=== PATIENT | female | born 1945 | race Caucasian/White ===

== ENCOUNTER 2016-06-18 20:54 | Inpatient (IN) ==
--- NOTE | 2016-06-18 21:05 | Emergency Department Note ---
Disposition Clinical Impression: Congestive heart failure, Hypoxia, CAD (coronary artery disease), Diabetes, Acute and chronic respiratory failure, Frail elderly, Confusion, COPD (chronic obstructive pulmonary disease), Abnormal EKG Disposition: Admitted As Inpatient Condition: Fair Referrals: NO,PCP [Primary Care Provider] - Forms: ED Satisfaction Letter General Adult HPI - General Chief complaint: ED Shortness of Breath/Dyspnea Stated complaint: "krista" - History of Present Illness HPI Narrative: 70-year-old female brought in from home, there is concern for shortness of breath. The patient has a history of CAD COPD DM and CHF. She has been struggling to breathe over the last day or so, the patient usually wears oxygen at home. She did not really want come to the hospital but finally acquiesced, the patient has been progressively weaker but not had any difficulty moving the arms or legs independently there is no history of slurred speech or fall or seizure. There is no history of abdominal pain vomiting or diarrhea. No history of fever. The patient is unable to give a clear history, however her caregivers are very helpful in this regard. There is no history of injury. She was able to request to come to the hospital prior to arrival. She did have some difficulty standing and walking to the bathroom without assistance. There is no history of coughing up blood. It is not known whether the patient is anticoagulated this time. Onset (ago): hour(s) - Related Data Home Medications Medication Instructions Recorded Confirmed Aspirin 325 mg PO DAILY 05/10/15 05/10/15 Atorvastatin Calcium [Lipitor] 80 mg PO HS 05/10/15 05/10/15 Carvedilol [Coreg] 12.5 mg PO BIDWM 05/10/15 05/10/15 Clopidogrel [Plavix] 75 mg PO DAILY 05/10/15 05/10/15 Docusate [Colace] 100 mg PO BID 05/10/15 05/10/15 Escitalopram [Lexapro] 20 mg PO DAILY 05/10/15 05/10/15 Esomeprazole Magnesium [Nexium] 40 mg PO DAILY 05/10/15 05/10/15 Fenofibrate [Tricor] 108 mg PO DAILY 05/10/15 05/10/15 Fluticasone/Salmeterol [Advair 1 each IH BID 05/10/15 05/10/15 250-50 Diskus] Folic Acid 1 mg PO DAILY 05/10/15 05/10/15 Furosemide [Lasix] 20 mg PO DAILY 05/10/15 05/10/15 Gabapentin [Neurontin] 600 mg PO DAILY 05/10/15 05/10/15 Glimepiride [Amaryl] 4 mg PO DAILY 05/10/15 05/10/15 Hydrocodone/Acetaminophen [[place] 1 tab PO Q6H PRN 05/10/15 05/10/15 7.5-325 Tablet] Isosorbide MONOnitrate (24 HR) 30 mg PO DAILY 05/10/15 05/10/15 [Imdur] LORazepam [Ativan] 0.5 mg PO TID 05/10/15 05/10/15 Levothyroxine [Synthroid] 175 mcg PO 0630 05/10/15 05/10/15 Losartan [Cozaar] 100 mg PO DAILY 05/10/15 05/10/15 Nitroglycerin [Nitrostat] 0.4 mg SL [id number] 05/10/15 05/10/15 Tiotropium [Spiriva] 18 mcg IH 0700 05/10/15 05/10/15 Previous Rx's Medication Instructions Recorded Azithromycin [Zithromax Tri-Anuedy] 500 mg PO DAILY #7 tablet 05/12/15 PredniSONE [Deltasone] 20 mg PO DAILY #31 tablet 05/12/15 Allergies Allergy/AdvReac Type Severity Reaction Status Date / Time No Known Allergies Allergy Verified 05/09/15 23:51 Limitations: ROS unobtainable due to patients medical condition Past Medical History - Past Medical History Medical history: Reports: CHF, COPD, coronary artery disease, diabetes, hyperlipidemia, hypertension, myocardial infarction Psychiatric history: Reports: anxiety, depression - Social History Smoking Status: Current every day smoker Smokeless Tobacco Status: No Alcohol use: Reports: none Drug use: Reports: none Physical Exam - General Limitations: altered mental status General appearance: alert - Head Head exam: atraumatic, normocephalic, normal inspection - Eye Eye exam: Present: normal appearance, PERRL, EOMI. Absent: scleral icterus, conjunctival injection, miosis, mydriasis - ENT ENT exam: normal exam, TM's normal bilaterally, normal external ear exam - Neck Neck exam: Present: normal inspection, full ROM, trachea midline - Chest Chest inspection: Present: normal inspection, symmetric chest wall rise. Absent : tenderness - Respiratory Respiratory exam: Present: wheezes, prolonged expiratory phase - Cardiovascular Cardiovascular exam: Present: regular rate, normal rhythm, normal heart sounds - Abdominal Exam Abdominal exam: Present: soft, Non-Tender. Absent: tenderness, distention, guarding, rebound, rigidity, trauma, pulsatile mass - Extremities Exam Extremities exam: Present: normal inspection, full ROM, normal capillary refill. Absent: tenderness, pedal edema, joint swelling, calf tenderness - Expanded Lower Extremity Exam Lower leg exam: Absent: Homans' sign Neurovascular/Tendon exam: Present: normal capillary refill. Absent: motor deficit, sensory deficit, tendon deficit - Back Exam Back exam: Present: normal inspection, full ROM. Absent: tenderness, CVA tenderness (R), CVA tenderness (L), vertebral tenderness - Neurological Exam Neurological exam: Present: alert, CN II-XII intact, other (Patient has good muscle tone in all 4 extremities, she is able to grasp my hands bilaterally and shows no flank unilateral focal defect.). Absent: motor sensory deficit - Psychiatric Psychiatric exam: Present: normal affect - Skin Skin exam: Present: warm, dry, intact, normal color. Absent: rash, cyanosis, diaphoresis, erythema, pallor, mottled Course - Reevaluation(s) Reevaluation #1: The patient was placed on BiPAP, she became much more responsive and was able to wiggle her toes bilaterally, squeeze my hands with each hand without difficulty. She was able to say she was feeling better. No focal defects appreciated. Reevaluation #2: Once the patient was reassessed, she was able to clearly report that she had not been having any chest pain. Vital Signs Temperature 98.0 F 06/18/16 20:59 Pulse Rate 87 06/18/16 20:59 Respiratory Rate 16 06/18/16 20:59 Blood Pressure 195/93 06/18/16 20:59 O2 Sat by Pulse Oximetry 83 L 06/18/16 20:59 Temperature 98.0 F 06/18/16 20:59 Pulse Rate 87 06/18/16 20:59 Respiratory Rate 28 06/18/16 21:50 Blood Pressure 195/93 06/18/16 21:15 O2 Sat by Pulse Oximetry 91 L 06/18/16 21:50 Oxygen Delivery Oxygen Delivery Non Rebreather Mask Medical Decision Making - MDM Narrative Medical decision making narrative: The patient's EKGs were abnormal, Dr. Baires/check cashier reviewed an old EKG and the 2 available from the ED. He reports there is nothing to suggest acute myocardial infarction/STEMI. In addition, the patient has not been having chest pain, her troponin is negative. The patient is on BiPAP and appears to be stable. Her oxygen saturations are about 90%. She is much more clear in her mentation. Her CT scan head is negative. The patient appears to be in CHF. She was given Lasix and Nitropaste in the ED. One DuoNeb was given. Given the patient is significantly hypoxemic, and has multiple comorbidities including diabetes, frail elderly state, CHF, COPD, known coronary disease, and is requiring advanced support to maintain oxygen saturations are certainly think she needs admitted to the hospital. I have discussed the case with the hospitalist on-call who is excepted the patient to their care. - Lab Data Lab results reviewed: Yes I reviewed the patient's lab results. Result diagrams: 06/18/16 21:32 06/18/16 21:32 Lab Results 06/18/16 06/18/16 06/18/16 Range/Units 21:32 21:32 21:32 WBC 12.8 H (4.3-11.1) K/mcL RBC 4.05 (3.82-4.97) M/mcL Hgb 11.8 (11.5-15.4) g/dL Hct 37.2 (35.3-44.9) % MCV 91.9 (83.0-100.0) fL MCH 29.1 (28.0-33.3) pg MCHC 31.7 (31.6-35.5) g/dL RDW 14.5 (11.5-14.5) % Plt Count 173 (140-400) K/mcL MPV 11.0 (9.4-12.4) fL Immature Gran % 0.5 (0-4) % Seg Neutrophils % 84.8 % Lymphocytes % 7.6 % Monocytes % 6.6 % Eosinophils % 0.3 % Basophils % 0.2 % Neutrophils # 10.9 H (1.6-8.9) K/mcL Lymphocytes # 1.0 (0.6-4.6) K/mcL Monocytes # 0.9 (0.0-1.3) K/mcL Eosinophils # 0.0 (0.0-0.6) K/mcL Basophils # 0.0 (0.0-0.2) K/mcL PT 12.7 H (9.4-12.1) Seconds INR 1.2 APTT 30.3 (26.0-36.0) Seconds Sodium 135 L (136-145) mEq/L Potassium 4.8 H (3.5-4.5) mEq/L Chloride 90 L (98-109) mEq/L Carbon Dioxide 35 H (19-29) mEq/L BUN 15 (7-20) mg/dL Creatinine 0.71 (0.57-1.11) mg/dL Est GFR ( Amer) > 60 (> 60) Est GFR (Non-Af Amer) > 60 (> 60) BUN/Creatinine Ratio 21 (6-26) Glucose 378 H (70-99) mg/dL Calculated Osmolality 296 (280-300) Lactic Acid (0.5-2.2) mmol/L Calcium 10.3 (8.6-10.8) mg/dL Total Bilirubin 0.5 (0.2-1.2) mg/dL Direct Bilirubin 0.3 (0.0-0.5) mg/dL Indirect Bilirubin 0.2 (0.0-1.2) mg/dL AST 12 (5-34) Units/L ALT 11 (0-55) Units/L Alkaline Phosphatase 87 (38-126) Units/L Troponin I (0-0.03) ng/mL C-Reactive Protein 187 H (Less than 5) mg/L B-Natriuretic Peptide (0-100) pg/mL Serum Total Protein 7.3 (6.0-8.3) g/dL Albumin 3.3 L (3.5-5.0) g/dL Globulin 4.0 H (2.4-3.5) g/dL Albumin/Globulin Ratio 0.8 L (1.1-2.2) Urine Color (Yellow) Urine Clarity (Clear) Urine pH (5.0-8.0) pH Units Ur Specific [place] (1.010-1.025) Urine Protein (Neg-Trace) mg/dL Urine Glucose (UA) (Normal) mg/dL Urine Ketones (Negative) mg/dL Urine Blood (Negative) Urine Nitrite (Negative) Urine Bilirubin (Negative) Urine Urobilinogen (Normal) mg/dL Ur Leukocyte Esterase (Negative) Urine Microscopic RBC (0-3) per hpf Urine Microscopic WBC (0-3) per hpf Ur Squamous Epith Cells (None-Few) per lpf Urine Bacteria (None-Few) per hpf Hyaline Casts (None-Few) per lpf Ur Culture Indicated? (NO) 06/18/16 06/18/16 06/18/16 Range/Units 21:32 21:32 21:32 WBC (4.3-11.1) K/mcL RBC (3.82-4.97) M/mcL Hgb (11.5-15.4) g/dL Hct (35.3-44.9) % MCV (83.0-100.0) fL MCH (28.0-33.3) pg MCHC (31.6-35.5) g/dL RDW (11.5-14.5) % Plt Count (140-400) K/mcL MPV (9.4-12.4) fL Immature Gran % (0-4) % Seg Neutrophils % % Lymphocytes % % Monocytes % % Eosinophils % % Basophils % % Neutrophils # (1.6-8.9) K/mcL Lymphocytes # (0.6-4.6) K/mcL Monocytes # (0.0-1.3) K/mcL Eosinophils # (0.0-0.6) K/mcL Basophils # (0.0-0.2) K/mcL PT (9.4-12.1) Seconds INR APTT (26.0-36.0) Seconds Sodium (136-145) mEq/L Potassium (3.5-4.5) mEq/L Chloride (98-109) mEq/L Carbon Dioxide (19-29) mEq/L BUN (7-20) mg/dL Creatinine (0.57-1.11) mg/dL Est GFR ( Amer) (> 60) Est GFR (Non-Af Amer) (> 60) BUN/Creatinine Ratio (6-26) Glucose (70-99) mg/dL Calculated Osmolality (280-300) Lactic Acid 0.7 (0.5-2.2) mmol/L Calcium (8.6-10.8) mg/dL Total Bilirubin (0.2-1.2) mg/dL Direct Bilirubin (0.0-0.5) mg/dL Indirect Bilirubin (0.0-1.2) mg/dL AST (5-34) Units/L ALT (0-55) Units/L Alkaline Phosphatase (38-126) Units/L Troponin I 0.01 (0-0.03) ng/mL C-Reactive Protein (Less than 5) mg/L B-Natriuretic Peptide 602 H (0-100) pg/mL Serum Total Protein (6.0-8.3) g/dL Albumin (3.5-5.0) g/dL Globulin (2.4-3.5) g/dL Albumin/Globulin Ratio (1.1-2.2) Urine Color (Yellow) Urine Clarity (Clear) Urine pH (5.0-8.0) pH Units Ur Specific [place] (1.010-1.025) Urine Protein (Neg-Trace) mg/dL Urine Glucose (UA) (Normal) mg/dL Urine Ketones (Negative) mg/dL Urine Blood (Negative) Urine Nitrite (Negative) Urine Bilirubin (Negative) Urine Urobilinogen (Normal) mg/dL Ur Leukocyte Esterase (Negative) Urine Microscopic RBC (0-3) per hpf Urine Microscopic WBC (0-3) per hpf Ur Squamous Epith Cells (None-Few) per lpf Urine Bacteria (None-Few) per hpf Hyaline Casts (None-Few) per lpf Ur Culture Indicated? (NO) 06/18/16 Range/Units 21:51 WBC (4.3-11.1) K/mcL RBC (3.82-4.97) M/mcL Hgb (11.5-15.4) g/dL Hct (35.3-44.9) % MCV (83.0-100.0) fL MCH (28.0-33.3) pg MCHC (31.6-35.5) g/dL RDW (11.5-14.5) % Plt Count (140-400) K/mcL MPV (9.4-12.4) fL Immature Gran % (0-4) % Seg Neutrophils % % Lymphocytes % % Monocytes % % Eosinophils % % Basophils % % Neutrophils # (1.6-8.9) K/mcL Lymphocytes # (0.6-4.6) K/mcL Monocytes # (0.0-1.3) K/mcL Eosinophils # (0.0-0.6) K/mcL Basophils # (0.0-0.2) K/mcL PT (9.4-12.1) Seconds INR APTT (26.0-36.0) Seconds Sodium (136-145) mEq/L Potassium (3.5-4.5) mEq/L Chloride (98-109) mEq/L Carbon Dioxide (19-29) mEq/L BUN (7-20) mg/dL Creatinine (0.57-1.11) mg/dL Est GFR ( Amer) (> 60) Est GFR (Non-Af Amer) (> 60) BUN/Creatinine Ratio (6-26) Glucose (70-99) mg/dL Calculated Osmolality (280-300) Lactic Acid (0.5-2.2) mmol/L Calcium (8.6-10.8) mg/dL Total Bilirubin (0.2-1.2) mg/dL Direct Bilirubin (0.0-0.5) mg/dL Indirect Bilirubin (0.0-1.2) mg/dL AST (5-34) Units/L ALT (0-55) Units/L Alkaline Phosphatase (38-126) Units/L Troponin I (0-0.03) ng/mL C-Reactive Protein (Less than 5) mg/L B-Natriuretic Peptide (0-100) pg/mL Serum Total Protein (6.0-8.3) g/dL Albumin (3.5-5.0) g/dL Globulin (2.4-3.5) g/dL Albumin/Globulin Ratio (1.1-2.2) Urine Color Yellow (Yellow) Urine Clarity Clear (Clear) Urine pH 6.0 (5.0-8.0) pH Units Ur Specific [place] 1.020 (1.010-1.025) Urine Protein 30 H (Neg-Trace) mg/dL Urine Glucose (UA) >=1000 H (Normal) mg/dL Urine Ketones Negative (Negative) mg/dL Urine Blood Trace-intact H (Negative) Urine Nitrite Negative (Negative) Urine Bilirubin Negative (Negative) Urine Urobilinogen Normal (Normal) mg/dL Ur Leukocyte Esterase Negative (Negative) Urine Microscopic RBC 0-3 (0-3) per hpf Urine Microscopic WBC 0-3 (0-3) per hpf Ur Squamous Epith Cells Many H (None-Few) per lpf Urine Bacteria None Seen (None-Few) per hpf Hyaline Casts None Seen (None-Few) per lpf Ur Culture Indicated? NO (NO) - Radiology Data Radiology results reviewed: Yes I reviewed the patient's radiology results.
[2016-06-18] MEDS ORDERED: Nitroglycerin 1 INCH/GM PACKET TP ONE (21:14)
[2016-06-18] MEDS ORDERED: Furosemide 40 MG in 0.9 % Sodium Chloride 50 ML IVPB ONE (21:14)
[2016-06-18] MEDS ORDERED: Ipratropium/Albuterol Neb 3 ML IH ONE (21:14)
[2016-06-18] MEDS ORDERED: Furosemide 40 MG/4 ML VIAL IV ONE (21:30)
[2016-06-18 21:39] LABS: Basophils % 0.2 %; Eosinophils % 0.3 %; Hematocrit 37.2 % (35.3-44.9); Hemoglobin 11.8 g/dL (11.5-15.4); Immature Granulocytes % 0.5 % (0-4); Lymphocytes % 7.6 %; Mean Corpuscular HGB Conc 31.7 g/dL (31.6-35.5); Mean Corpuscular Hemoglobin 29.1 pg (28.0-33.3); Mean Corpuscular Volume 91.9 fL (83.0-100.0); Monocytes # 0.9 K/mcL (0.0-1.3); Monocytes % 6.6 %; Neutrophils # 10.9 K/mcL (1.6-8.9); Platelet Count 173 K/mcL (140-400); Red Blood Count 4.05 M/mcL (3.82-4.97); Red Cell Distribution Width 14.5 % (11.5-14.5); Segmented Neutrophils % 84.8 %
[2016-06-18 21:46] LABS: INR 1.2; Prothrombin Time 12.7 Seconds (9.4-12.1)
[2016-06-18 21:48] LABS: Activated Partial Thrombo Time 30.3 Seconds (26.0-36.0)
[2016-06-18 21:55] LABS: Alanine Aminotransferase 11 Units/L (0-55); Albumin 3.3 g/dL (3.5-5.0); Albumin/Globulin Ratio 0.8 (1.1-2.2); Alkaline Phosphatase 87 Units/L (38-126); Aspartate Amino Transferase 12 Units/L (5-34); BUN/Creatinine Ratio 21 (6-26); Bilirubin,Direct 0.3 mg/dL (0.0-0.5); Bilirubin,Indirect 0.2 mg/dL (0.0-1.2); Bilirubin,Total 0.5 mg/dL (0.2-1.2); Blood Urea Nitrogen 15 mg/dL (7-20); Calcium 10.3 mg/dL (8.6-10.8); Carbon Dioxide 35 mEq/L (19-29); Chloride 90 mEq/L (98-109); Glucose 378 mg/dL (70-99); Osmolality,Calculated 296 (280-300); Potassium 4.8 mEq/L (3.5-4.5); Sodium 135 mEq/L (136-145); Total Protein 7.3 g/dL (6.0-8.3); eGFR For African Americans > 60 (> 60); eGFR For Non-African Americans > 60 (> 60)
[2016-06-18 21:55] LABS: Bilirubin,Urine Negative (Negative); Blood,Urine Trace-intact (Negative); Clarity,Urine Clear (Clear); Color,Urine Yellow (Yellow); Glucose,Urine (UA) >=1000 mg/dL (Normal); Ketones,Urine Negative (Negative); Leukocyte Esterase,Urine Negative (Negative); Nitrite,Urine Negative (Negative); Protein,Urine 30 mg/dL (Neg-Trace); Urobilinogen,Urine Normal (Normal)
[2016-06-18 21:56] LABS: Bacteria,Urine None Seen per hpf (None-Few); Hyaline Casts,Urine None Seen per lpf (None-Few); RBC,Urine 0-3 per hpf (0-3); Squamous Epithelial Cell,Urine Many per lpf (None-Few); WBC,Urine 0-3 per hpf (0-3)
[2016-06-18] MEDS ORDERED: Insulin Regular, Human 100 UNIT/ML SQ ONE (22:09)
[2016-06-18 22:12] LABS: C-Reactive Protein 187 mg/L (Less than 5)
[2016-06-18] MEDS ORDERED: Acetaminophen 325 MG TABLET PO PRN (23:55)
[2016-06-18] MEDS ORDERED: Naloxone 0.4 MG/ML INJ IVP PRN (23:55)
--- NOTE | 2016-06-18 23:58 | Internal Med History&Physical ---
Date of Encounter: 06/18/16 Time of Encounter: 23:58 Assessment and Plan (1) Acute and chronic respiratory failure Current visit: Yes Status: Acute Patient has history of chronic respiratory failure and uses oxygen at home. Acute exacerbation, due to CHF exacerbation. Patient is on BiPAP therapy - continue. Monitor ABGs Qualifiers: Respiratory failure complication: hypoxia and hypercapnia Qualified Code(s) : J96.21 - Acute and chronic respiratory failure with hypoxia; J96.22 - Acute and chronic respiratory failure with hypercapnia (2) Acute exacerbation of CHF (congestive heart failure) Current visit: Yes Status: Acute Prior echocardiogram in 05/04, showed LVEF of 65%. will obtain repeat echocardiogram. Treat with IV lasix. Continue carvedilol. Qualifiers: Congestive heart failure type: diastolic Qualified Code(s): I50.33 - Acute on chronic diastolic (congestive) heart failure (3) Hypertension Current visit: Yes Status: Acute Continue home meds Qualifiers: Hypertension type: essential hypertension Qualified Code(s): I10 - Essential (primary) hypertension (4) CAD (coronary artery disease) Current visit: Yes Status: Acute s/p CABG. Stable. continue ASA, plavix, beta rikva Qualifiers: Coronary Disease-Associated Artery/Lesion type: [place] artery [place] vs. transplanted heart: [place] heart Associated angina: without angina Qualified Code(s): I25.10 - Atherosclerotic heart disease of [place] coronary artery without angina pectoris (5) COPD (chronic obstructive pulmonary disease) Current visit: Yes Status: Chronic Treat with bronchodilators Qualifiers: COPD type: unspecified COPD Qualified Code(s): J44.9 - Chronic obstructive pulmonary disease, unspecified (6) Diabetes Current visit: Yes Status: Acute Treat with sliding scale insulin. Pt is hyperglycemic - pt has prednisone listed in the home meds - suspect it could be due to steroids. Check A1C Qualifiers: Diabetes mellitus type: type 2 Diabetes mellitus complication status: with hyperglycemia Diabetes mellitus manager long term care insulin use: without senior care use Qualified Code(s): E11.65 - Type 2 diabetes mellitus with hyperglycemia (7) DVT prophylaxis Current visit: No Status: Acute SubQ heparin Internal Medicine - H&P: HPI Chief complaint: Shortness of breath History of present illness: Ms. Anne is a 70 year old female with past medical history of CAD s/p CABG in 1995, CHF (Prior echo in 05/14 showed LVEF of 65%), severe COPD with chronic hypoxemic respiratory failure on home oxygen, diabetes mellitus, hyperlipidemia , hypertension, anxiety and depression. She progressively worsening shortness of breath for 2 days. Shortness of breath at rest and reports orthopnea. She reports cough with whitish/orange expectoration. Denies fever, chills, nausea, vomiting. Denies chest pain, abdominal pain, urinary or bowel symptoms. She was evaluated in the emergency department she was noted to have abnormal EKG, which was discussed with cattle dehorner, Dr. Baires. There was no concern for acute TN. Pt was given IV Lasix, nitro patch. Started on BiPAP therapy and admitted to the hospitalist service for further management. Past Med Surg Social Fam HX - Past Medical History Medical history: CHF, COPD, coronary artery disease, diabetes, hyperlipidemia, hypertension, myocardial infarction Psychiatric history: anxiety, depression - Social History Smoking Status: Current every day smoker Smokeless Tobacco Status: No Alcohol use: none Drug use: none - Family History Mother Adopted: No Age: 70 Living Status: Age at : 70 Cause of : heart problems Hx Family Cardiac Disorders: Yes (mi, chf) Internal Medicine - H&P: Meds Aspirin 325 mg PO DAILY 05/10/15 [History] Atorvastatin Calcium [Lipitor] 80 mg PO HS 05/10/15 [History] Carvedilol [Coreg] 12.5 mg PO BIDWM 05/10/15 [History] Clopidogrel [Plavix] 75 mg PO DAILY 05/10/15 [History] Docusate [Colace] 100 mg PO BID 05/10/15 [History] Escitalopram [Lexapro] 20 mg PO DAILY 05/10/15 [History] Esomeprazole Magnesium [Nexium] 40 mg PO DAILY 05/10/15 [History] Fenofibrate [Tricor] 108 mg PO DAILY 05/10/15 [History] Fluticasone/Salmeterol [Advair 250-50 Diskus] 1 each IH BID 05/10/15 [History] Folic Acid 1 mg PO DAILY 05/10/15 [History] Furosemide [Lasix] 20 mg PO DAILY 05/10/15 [History] Gabapentin [Neurontin] 600 mg PO DAILY 05/10/15 [History] Glimepiride [Amaryl] 4 mg PO DAILY 05/10/15 [History] Hydrocodone/Acetaminophen [[place] 7.5-325 Tablet] 1 tab PO Q6H PRN 05/10/15 [ History] Isosorbide MONOnitrate (24 HR) [Imdur] 30 mg PO DAILY 05/10/15 [History] LORazepam [Ativan] 0.5 mg PO TID 05/10/15 [History] Levothyroxine [Synthroid] 175 mcg PO 0630 05/10/15 [History] Losartan [Cozaar] 100 mg PO DAILY 05/10/15 [History] Nitroglycerin [Nitrostat] 0.4 mg SL [id number] 05/10/15 [History] Tiotropium [Spiriva] 18 mcg IH 0700 05/10/15 [History] Azithromycin [Zithromax Tri-Aneudy] 500 mg PO DAILY #7 tablet 05/12/15 [Rx] PredniSONE [Deltasone] 20 mg PO DAILY #31 tablet 05/12/15 [Rx] Allergies No Known Allergies Allergy (Verified 05/09/15 23:51) All Systems PM: A 10-system review of systems was performed and is negative for pertinent findings except as documented above in the HPI. - Constitutional Vitals: Temp Pulse Resp BP Pulse Ox 98.0 F 87 16 134/78 91 L 06/18/16 20:59 06/18/16 20:59 06/18/16 23:16 06/18/16 23:16 06/18/16 21:50 Exam: General: Not in acute distress at the time of my evaluation HEENT: BiPAP mask in place Neck: No obvious neck swellings Lungs: Bilateral crackles up to mid zones Cardiac: Regular rate and rhythm. No significant murmurs Abdomen: Soft, non tender. Bowel sounds present Genitourinary: allison catheter present Neurological: Alert and oriented. No gross localizing deficits Psych: Not aggressive or agitated Extremities: b/l leg edema present. There is erythema of the left lower leg present Skin: No generalized rash Internal Med - H&P Results - Labs CBC & Chem 7: 06/18/16 21:32 06/18/16 21:32 Labs: Laboratory Tests 06/18/16 06/18/16 06/18/16 21:32 21:32 21:32 WBC 12.8 H RBC 4.05 Hgb 11.8 Hct 37.2 MCV 91.9 MCH 29.1 MCHC 31.7 RDW 14.5 Plt Count 173 MPV 11.0 Immature Gran % 0.5 Seg Neutrophils % 84.8 Lymphocytes % 7.6 Monocytes % 6.6 Eosinophils % 0.3 Basophils % 0.2 Neutrophils # 10.9 H Lymphocytes # 1.0 Monocytes # 0.9 Eosinophils # 0.0 Basophils # 0.0 PT 12.7 H INR 1.2 APTT 30.3 ABG pH ABG pCO2 ABG pO2 ABG HCO3 ABG Total CO2 ABG O2 Saturation ABG Base Excess Blood Gas Modality Inspired O2 Sodium 135 L Potassium 4.8 H Chloride 90 L Carbon Dioxide 35 H BUN 15 Creatinine 0.71 Est GFR ( Amer) > 60 Est GFR (Non-Af Amer) > 60 BUN/Creatinine Ratio 21 Glucose 378 H Calculated Osmolality 296 Lactic Acid Calcium 10.3 Total Bilirubin 0.5 Direct Bilirubin 0.3 Indirect Bilirubin 0.2 AST 12 ALT 11 Alkaline Phosphatase 87 Troponin I C-Reactive Protein 187 H B-Natriuretic Peptide Serum Total Protein 7.3 Albumin 3.3 L Globulin 4.0 H Albumin/Globulin Ratio 0.8 L Urine Color Urine Clarity Urine pH Ur Specific [place] Urine Protein Urine Glucose (UA) Urine Ketones Urine Blood Urine Nitrite Urine Bilirubin Urine Urobilinogen Ur Leukocyte Esterase Urine Microscopic RBC Urine Microscopic WBC Ur Squamous Epith Cells Urine Bacteria Hyaline Casts Ur Culture Indicated? 06/18/16 06/18/16 06/18/16 21:32 21:32 21:32 WBC RBC Hgb Hct MCV MCH MCHC RDW Plt Count MPV Immature Gran % Seg Neutrophils % Lymphocytes % Monocytes % Eosinophils % Basophils % Neutrophils # Lymphocytes # Monocytes # Eosinophils # Basophils # PT INR APTT ABG pH ABG pCO2 ABG pO2 ABG HCO3 ABG Total CO2 ABG O2 Saturation ABG Base Excess Blood Gas Modality Inspired O2 Sodium Potassium Chloride Carbon Dioxide BUN Creatinine Est GFR ( Amer) Est GFR (Non-Af Amer) BUN/Creatinine Ratio Glucose Calculated Osmolality Lactic Acid 0.7 Calcium Total Bilirubin Direct Bilirubin Indirect Bilirubin AST ALT Alkaline Phosphatase Troponin I 0.01 C-Reactive Protein B-Natriuretic Peptide 602 H Serum Total Protein Albumin Globulin Albumin/Globulin Ratio Urine Color Urine Clarity Urine pH Ur Specific [place] Urine Protein Urine Glucose (UA) Urine Ketones Urine Blood Urine Nitrite Urine Bilirubin Urine Urobilinogen Ur Leukocyte Esterase Urine Microscopic RBC Urine Microscopic WBC Ur Squamous Epith Cells Urine Bacteria Hyaline Casts Ur Culture Indicated? 06/18/16 06/19/16 21:51 00:40 WBC RBC Hgb Hct MCV MCH MCHC RDW Plt Count MPV Immature Gran % Seg Neutrophils % Lymphocytes % Monocytes % Eosinophils % Basophils % Neutrophils # Lymphocytes # Monocytes # Eosinophils # Basophils # PT INR APTT ABG pH 7.25 L ABG pCO2 94 H* ABG pO2 76 L ABG HCO3 41.2 H ABG Total CO2 44.1 H ABG O2 Saturation 93 L ABG Base Excess 10.8 H Blood Gas Modality BIPAP Inspired O2 60 Sodium Potassium Chloride Carbon Dioxide BUN Creatinine Est GFR ( Amer) Est GFR (Non-Af Amer) BUN/Creatinine Ratio Glucose Calculated Osmolality Lactic Acid Calcium Total Bilirubin Direct Bilirubin Indirect Bilirubin AST ALT Alkaline Phosphatase Troponin I C-Reactive Protein B-Natriuretic Peptide Serum Total Protein Albumin Globulin Albumin/Globulin Ratio Urine Color Yellow Urine Clarity Clear Urine pH 6.0 Ur Specific [place] 1.020 Urine Protein 30 H Urine Glucose (UA) >=1000 H Urine Ketones Negative Urine Blood Trace-intact H Urine Nitrite Negative Urine Bilirubin Negative Urine Urobilinogen Normal Ur Leukocyte Esterase Negative Urine Microscopic RBC 0-3 Urine Microscopic WBC 0-3 Ur Squamous Epith Cells Many H Urine Bacteria None Seen Hyaline Casts None Seen Ur Culture Indicated? NO - EKG Data EKG comments: SR, possible LBBB 06/19/16 01:16 - Impressions ITS Impressions Chest X-Ray 06/18/16 21:11 IMPRESSION: Findings most suggestive of pulmonary edema. Follow-up is recommended. D/ / María Elena Saldana Cha, MD / María Elena Saldana Cha, MD Interpreting Provider: María Elena Saldana Cha, MD Head CT 06/18/16 21:23 IMPRESSION: No acute intracranial abnormality. D/ / Arianna Larios MD / Arianna Larios MD Interpreting Provider: Arianna Larios MD
[2016-06-19] MEDS ORDERED: Furosemide 20 MG/2 ML VIAL IVP ONE (00:22)
[2016-06-19 00:50] LABS: ABG Base Excess 10.8 mEq/L (-2.0 to 3.0); ABG HCO3 41.2 mEQ/L (21-27); ABG Oxygen Saturation 93 % (95-98); ABG PH 7.25 pH Units (7.32-7.45); ABG PO2 76 mmHg (85-104); ABG TCO2 44.1 mEq/L (20-26)
[2016-06-19 00:51] LABS: Blood Gas FiO2 60 %
[2016-06-19 00:53] LABS: ABG PCO2 94 mmHg (35-45)
[2016-06-19] MEDS: *HR* Heparin 5,000 UNIT/ML VIAL SQ SCH ×3 (01:21→15:51)
[2016-06-19] MEDS ORDERED: *HR* Dextrose 50 % in Water (Syg) 50 ML SYRINGE IVP PRN (01:34)
[2016-06-19] MEDS ORDERED: D5% in Water 1,000 ML IV PRN (01:34)
[2016-06-19] MEDS ORDERED: Dextrose Gel 15 GM PO PRN ×2 (01:34)
[2016-06-19] MEDS ORDERED: Insulin LISPRO 300 UNITS/3 ML VIAL SQ STA (02:30)
[2016-06-19 05:44] LABS: Hematocrit 34.5 % (35.3-44.9); Hemoglobin 10.6 g/dL (11.5-15.4); Mean Corpuscular HGB Conc 30.7 g/dL (31.6-35.5); Mean Corpuscular Hemoglobin 28.3 pg (28.0-33.3); Mean Platelet Volume 11.3 fL (9.4-12.4); Platelet Count 161 K/mcL (140-400); Red Blood Count 3.75 M/mcL (3.82-4.97); Red Cell Distribution Width 14.6 % (11.5-14.5)
[2016-06-19 05:47] LABS: Hemoglobin A1C 8.9 %
[2016-06-19 05:53] LABS: BUN/Creatinine Ratio 23 (6-26); Blood Urea Nitrogen 17 mg/dL (7-20); Calcium 10.2 mg/dL (8.6-10.8); Carbon Dioxide 35 mEq/L (19-29); Chloride 93 mEq/L (98-109); Glucose 203 mg/dL (70-99); Magnesium 1.7 mg/dL (1.6-2.6); Osmolality,Calculated 295 (280-300); Potassium 4.3 mEq/L (3.5-4.5); Sodium 139 mEq/L (136-145); eGFR For African Americans > 60 (> 60); eGFR For Non-African Americans > 60 (> 60)
[2016-06-19] MEDS: Insulin LISPRO 300 UNITS/3 ML VIAL SQ SCH ×4 (08:42→21:38)
--- NOTE | 2016-06-19 16:12 | Electrocardiograph Report ---
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
--- NOTE | 2016-06-19 19:05 | Internal Med Progress Note ---
Date of Encounter: 06/19/16 Time of Encounter: 16:00 - Assessment and plan (1) Acute exacerbation of CHF (congestive heart failure) Current Visit: Yes Status: Acute Assessment and plan: Lasix BID, Monitor electrolytes, Chest X ray at AM , continue BIPAP Qualifiers: Qualified Code(s): I50.33 - Acute on chronic diastolic (congestive) heart failure (2) Diabetes Current Visit: Yes Status: Acute Assessment and plan: ISS Qualifiers: Qualified Code(s): E11.65 - Type 2 diabetes mellitus with hyperglycemia (3) Frail elderly Current Visit: Yes Status: Acute (4) COPD (chronic obstructive pulmonary disease) Current Visit: Yes Status: Chronic Assessment and plan: Add Duonep, aersol treatment and steroids Qualifiers: Qualified Code(s): J44.9 - Chronic obstructive pulmonary disease, unspecified - Subjective Interval history: Patient complaining of shortness of breath, patient denies any chest pain, she is complaining of dry cough, complaining of gastroesophageal reflux disease- like symptoms, markedly diminished oral intake. Patient is very anxious - Constitutional Vitals: Temp Pulse Resp BP Pulse Ox 97.5 F L 77 33 109/57 96 06/19/16 16:20 06/19/16 16:20 06/19/16 16:20 06/19/16 16:20 06/19/16 16:20 - Head Head exam: Present: atraumatic, normocephalic - Neck Neck exam general surgery: Present: supple, trachea midline. Absent: lymphadenopathy - Respiratory Respiratory exam: Present: accessory muscle use, decreased breath sounds, CTAB, prolonged expiratory phase, rales, respiratory distress, wheezes, tachypnea. Absent: rhonchi - Cardiovascular Cardiovascular exam: Present: RRR, +S1, +S2, systolic murmur. Absent: diastolic murmur, gallop, rubs - GI/Abdominal GI/Abdominal exam: Present: normal bowel sounds, soft, no peritoneal signs. Absent: distended, tenderness - Extremities Exam Extremities exam: Present: warm. Absent: calf tenderness, cyanotic, pedal edema Internal Medicine: Result - Labs CBC & Chem 7: 06/19/16 05:00 06/19/16 05:00 Labs: Short CBC 06/19/16 Range/Units 05:00 WBC 11.1 (4.3-11.1) K/mcL Hgb 10.6 L (11.5-15.4) g/dL Hct 34.5 L (35.3-44.9) % Plt Count 161 (140-400) K/mcL BMP 06/19/16 05:00 Sodium 139 Potassium 4.3 Chloride 93 L Carbon Dioxide 35 H BUN 17 Creatinine 0.74 Glucose 203 H Calcium 10.2 - ABG Interpretation ABG results: ABG ABG pH 7.25 pH Units (7.32-7.45) L 06/19/16 00:40 ABG pCO2 94 mmHg (35-45) H* 06/19/16 00:40 ABG pO2 76 mmHg (85-104) L 06/19/16 00:40 ABG O2 Saturation 93 % (95-98) L 06/19/16 00:40 PT/INR, D-dimer PT 12.7 Seconds (9.4-12.1) H 06/18/16 21:32 Consult Discharge Plan - Plan Referrals: Sonya Morel MD [Primary Care Provider] - 06/27/16 10:45 am
[2016-06-19] MEDS: Furosemide 20 MG/2 ML VIAL IVP SCH (19:42)
[2016-06-19] MEDS: Ipratropium/Albuterol Neb 3 ML IH SCH ×3 (20:00→23:11)
[2016-06-20] MEDS: *HR* Heparin 5,000 UNIT/ML VIAL SQ SCH ×4 (00:33→23:33)
[2016-06-20] MEDS: Ipratropium/Albuterol Neb 3 ML IH SCH ×6 (03:11→23:38)
[2016-06-20 04:20] LABS: ABG Base Excess 16.4 mEq/L (-2.0 to 3.0); ABG HCO3 45.9 mEQ/L (21-27); ABG Oxygen Saturation 87 % (95-98); ABG PH 7.34 pH Units (7.32-7.45); ABG PO2 56 mmHg (85-104); ABG TCO2 48.5 mEq/L (20-26); Blood Gas Liter Flow 60 L/MIN
[2016-06-20 04:22] LABS: ABG PCO2 85 mmHg (35-45)
[2016-06-20] MEDS: Insulin LISPRO 300 UNITS/3 ML VIAL SQ SCH ×4 (08:38→19:45)
[2016-06-20] MEDS: Furosemide 20 MG/2 ML VIAL IVP SCH (08:39)
[2016-06-20] MEDS ORDERED: Isosorbide MONOnitrate (24 HR) 30 MG TAB.ER.24H PO SCH (09:15)
[2016-06-20] MEDS ORDERED: amLODIPine 5 MG TABLET PO SCH (09:15)
--- NOTE | 2016-06-20 09:22 | ECHO - Doppler Report ---
Echocardiogram Name: Madeleine Anne Date of Study: 06/20/2016 Date: 1945 Ht: 64.0 in Medical Record#: [id number] Age: 70 Wt: 132.0 lb Gender: Female BSA: 1.64 Order #: [id number] Location: [facility] Room #: 2N09 Reading Physician: Esther Almonte DO Balance Staff Inspector: FRANNY RichardsT, [facility] Ordering Physician: Ozzy Mejia MD Primary Physician: Sonya Morel MD Indications: Congestive heart failure Impressions: LVEF 55%. Moderate concentric hypertrophy of the left ventricle. There is evidence of mild diastolic dysfunction of the left ventricle. Normal right ventricular size and function. Mild- moderate aortic regurgitation. Mild mitral regurgitation. Mild tricuspid regurgitation. Moderate pulmonic regurgitation. Estimated RVSP was 43 mmHg. Mild pulmonary hypertension. Left Ventricular Wall Motion: Rest Echo Findings All wall segments showed normal motion. Findings: Study Quality * Technically adequate exam. ECG Findings * Normal sinus rhythm. Left Ventricle * LVEF 55%. * Moderate concentric left ventricular hypertrophy. * Mild left ventricular diastolic dysfunction. Left Atrium * Mildly dilated left atrium. Mitral Valve * No mitral stenosis. * Mild mitral regurgitation. * Mildly thickened mitral valve leaflets. Aortic Valve * Trileaflet aortic valve. * Mildly calcified aortic valve leaflets. * Mild-moderate aortic regurgitation. * No aortic stenosis. Tricuspid Valve * Tricuspid valve not well visualized. * Mild tricuspid regurgitation. * Estimated RA pressure is 3 mmHg. * Estimated RVSP is 43 mmHg. * Mild pulmonary hypertension. Pulmonic Valve * Pulmonic valve is not well visualized. * No pulmonic stenosis. * Moderate pulmonic regurgitation. Pulmonary Artery * Pulmonary artery not well visualized. Right Ventricle * Normal right ventricular structure and function. Right Atrium * Normal right atrial size. Interatrial Septum * No evidence of PFO by color Doppler. IVC * The IVC is not dilated. Pericardium * There is no pericardial effusion present. Aorta * Normally sized aortic root. History Hypertension Diabetes Hypercholesteremia Family History of CAD History of CAD/PTCA Myocardial Infarction Coronary Artery Bypass Graft Congestive Heart Failure 05-10-2015 a Previous Echo was performed. Measurements: BP: 137/ 67 2D Normal Values IVSd: 1.50 cm 0.6 - 1.0 cm LVIDd: 4.30 cm 3.7 - 5.6 cm LVPWd: 1.50 cm 0.6 - 1.1 cm LVIDs: 2.50 cm 1.5 - 3.6 cm AO: 3.40 cm < 4.0 cm LA: 5.40 cm 2.0 - 4.0cm %FS: 41.90 cm >25 % LA volume: 56 Mitral Valve Dec Time:254.00 msec Peak E:1.48 m/sec Peak A:1.67 m/sec E/A Ratio:0.9 Peak E' Lat Geoffrey:7.41 cm/s Peak E' Med Geoffrey:4.48 cm/s E/E' Lat Ratio:20 E/E' Med Ratio:33 Aortic Valve AI pressure Half-time: 356.00 msec Tricuspid Valve TV Regurg Peak Grad: 40.00mmHg TV Regurg Peak Geoffrey: 3.18m/sec Updated by Esther Almonte on 06/20/2016 9:11:56 AM electronically signed on 06/20/2016 9:16:44 AM with status of Final Wall Motion Richey: 1=Normal, 2=Hypokinesis, 3=Akinesis, 4=Dyskinesis, 5=Aneurysmal, 6=Hyperkinetic, X=Not Visualized (Blank)=Missing
--- NOTE | 2016-06-20 09:29 | Internal Med Progress Note ---
Date of Encounter: 06/20/16 Time of Encounter: 09:25 - Assessment and plan (1) Acute and chronic respiratory failure Current Visit: Yes Status: Acute Assessment and plan: Likely result of an acute exacerbation of CHF along with underlying COPD. Continue fluid restriction, IV diuresis, strict input/urine output monitoring and daily weights. Continue supplemental oxygen as needed along with when necessary BiPAP support. Continue bronchodilators, taper down IV steroids as tolerated, start empiric IV antibiotics. Patient has a guarded prognosis at this time. Physical and occupational therapy evaluation noted, recommend placement in an extended care facility for continued rehabilitation. Qualifiers: Respiratory failure complication: hypoxia and hypercapnia Qualified Code(s) : J96.21 - Acute and chronic respiratory failure with hypoxia; J96.22 - Acute and chronic respiratory failure with hypercapnia (2) Acute exacerbation of CHF (congestive heart failure) Current Visit: Yes Status: Acute Assessment and plan: Continues to have some respiratory distress with hypoxia and hypercapnia on ABG. Continue BiPAP support as needed along with supplemental oxygen. Continue beta rivka, SHANKAR inhibitor. Echocardiogram reviewed, shows 55% ejection fraction, moderate concentric LVH, mild diastolic dysfunction of left ventricle, mild to moderate aortic regurgitation, mild mitral and tricuspid regurgitation and moderate pulmonary regurgitation, mild pulmonary hypertension. Qualifiers: Congestive heart failure type: diastolic Qualified Code(s): I50.33 - Acute on chronic diastolic (congestive) heart failure (3) Hypothyroidism Current Visit: Yes Status: Chronic Qualifiers: Hypothyroidism type: acquired Qualified Code(s): E03.9 - Hypothyroidism, unspecified (4) CAD (coronary artery disease) Current Visit: Yes Status: Chronic Qualifiers: Coronary Disease-Associated Artery/Lesion type: ute artery [place] vs. transplanted heart: ute heart Associated angina: without angina Qualified Code(s): I25.10 - Atherosclerotic heart disease of [place] coronary artery without angina pectoris (5) Diabetes Current Visit: Yes Status: Chronic Assessment and plan: Continue Accu-Chek blood glucose monitoring with sliding scale insulin. Diabetic diet. 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 Currently noted to be on high flow nasal cannula, working on her breakfast. He reports feeling better. Continues to have wet cough, intermittent shortness of breath. No fevers, chills. - Constitutional Vitals: Temp Pulse Resp BP Pulse Ox 97.7 F 76 29 182/87 92 L 06/20/16 03:43 06/20/16 07:45 06/20/16 08:40 06/20/16 08:45 06/20/16 08:40 General appearance: Present: mild distress, A&O X 3, answers questions appropriately - Head Head exam: Present: atraumatic, normocephalic - Neck Neck exam general surgery: Present: supple, trachea midline. Absent: lymphadenopathy - Respiratory Respiratory exam: Present: rales (bibasilar crackles+), wheezes (no wheezing). Absent: accessory muscle use, rhonchi - Cardiovascular Cardiovascular exam: Present: RRR, +S1, +S2, tachycardia. Absent: diastolic murmur, gallop, rubs, systolic murmur - GI/Abdominal GI/Abdominal exam: Present: normal bowel sounds, soft, no peritoneal signs. Absent: distended, tenderness - Extremities Exam Extremities exam: Present: full ROM, warm, radial pulses palpable and symetrical. Absent: calf tenderness, cyanotic, pedal edema - Neurological Exam Neurological exam: Present: CN II-XII intact, oriented X3, no focal deficits. Absent: pronater drift, facial droop, speech deficit - Skin Skin exam: Present: dry, intact Internal Medicine: Result - Labs CBC & Chem 7: 06/19/16 05:00 06/19/16 05:00 - ABG Interpretation ABG results: ABG ABG pH 7.34 pH Units (7.32-7.45) 06/20/16 04:08 ABG pCO2 85 mmHg (35-45) H* 06/20/16 04:08 ABG pO2 56 mmHg (85-104) L 06/20/16 04:08 ABG O2 Saturation 87 % (95-98) L 06/20/16 04:08 PT/INR, D-dimer PT 12.7 Seconds (9.4-12.1) H 06/18/16 21:32 Consult Discharge Plan - Plan Referrals: Sonya Morel MD [Primary Care Provider] - 06/27/16 10:45 am
[2016-06-20] MEDS: *HR* LORazepam 0.5 MG TABLET PO SCH ×3 (09:46→22:20)
[2016-06-20] MEDS: Levofloxacin 500 MG/100 ML 500 MG/100 ML BAG IVPB SCH (09:47)
[2016-06-20] MEDS: Aspirin 325 MG TABLET PO SCH (09:47)
[2016-06-20] MEDS: Budesonide/Formoterol 80/4.5 MDI IH SCH ×2 (11:56→20:25)
[2016-06-20] MEDS: MethylPREDNISolone 40 MG/ML VIAL IVP SCH (18:24)
[2016-06-20] MEDS ORDERED: methylPREDNISolone 125 MG/2 ML VIAL IVP SCH (19:07)
[2016-06-20] MEDS: Furosemide 40 MG/4 ML VIAL IVP SCH (19:51)
[2016-06-21] MEDS: Ipratropium/Albuterol Neb 3 ML IH SCH ×6 (04:43→23:26)
[2016-06-21 05:35] LABS: BUN/Creatinine Ratio 58 (6-26); Calcium 10.6 mg/dL (8.6-10.8); Carbon Dioxide 36 mEq/L (19-29); Chloride 86 mEq/L (98-109); Glucose 279 mg/dL (70-99); Magnesium 1.6 mg/dL (1.6-2.6); Osmolality,Calculated 301 (280-300); Phosphorous 3.2 mg/dL (2.3-4.7); Potassium 4.6 mEq/L (3.5-4.5); Sodium 135 mEq/L (136-145); eGFR For African Americans > 60 (> 60); eGFR For Non-African Americans > 60 (> 60)
[2016-06-21 05:41] LABS: Blood Urea Nitrogen 42 mg/dL (7-20)
[2016-06-21] MEDS: MethylPREDNISolone 40 MG/ML VIAL IVP SCH ×2 (05:52→16:59)
[2016-06-21] MEDS: Levofloxacin 500 MG/100 ML 500 MG/100 ML BAG IVPB SCH (07:37)
[2016-06-21] MEDS: *HR* Heparin 5,000 UNIT/ML VIAL SQ SCH ×3 (07:41→23:03)
[2016-06-21] MEDS: Furosemide 40 MG/4 ML VIAL IVP SCH ×2 (07:41→20:50)
[2016-06-21] MEDS: Folic Acid 1 MG TABLET PO SCH (07:42)
[2016-06-21] MEDS: Aspirin 325 MG TABLET PO SCH (07:42)
[2016-06-21] MEDS: Fenofibrate 54 MG TABLET PO SCH (07:42)
[2016-06-21] MEDS: *HR* LORazepam 0.5 MG TABLET PO SCH ×3 (07:42→23:03)
[2016-06-21] MEDS: Gabapentin 300 MG CAPSULE PO SCH (07:42)
[2016-06-21] MEDS: Insulin LISPRO 300 UNITS/3 ML VIAL SQ SCH ×4 (07:45→20:15)
[2016-06-21] MEDS: Budesonide/Formoterol 80/4.5 MDI IH SCH ×2 (07:47→19:43)
[2016-06-21] MEDS: Tiotropium 18 MCG inhalation IH SCH (11:13)
--- NOTE | 2016-06-21 12:42 | Internal Med Progress Note ---
Date of Encounter: 06/21/16 Time of Encounter: 12:30 - Assessment and plan (1) Acute and chronic respiratory failure Current Visit: Yes Status: Acute Assessment and plan: Likely result of an acute exacerbation of CHF along with underlying COPD. no significant improvement in clinical status. Repeat ABG shows respiratory acidosis with elevated PCO2 above 100. Requires continuous BiPAP at this time. Repeat chest x-ray shows persistent pulmonary edema, suggestive of CHF. Cardiology consulted, recommended to continue current management and decrease Coreg. Continue fluid restriction, IV diuresis, strict input/urine output monitoring and daily weights. Continue supplemental oxygen as needed along with when necessary BiPAP support. Continue bronchodilators, taper down IV steroids as tolerated, empiric IV antibiotics. Patient has a guarded prognosis at this time. Physical and occupational therapy evaluation noted, recommend placement in an extended care facility for continued rehabilitation. Qualifiers: Respiratory failure complication: hypoxia and hypercapnia Qualified Code(s) : J96.21 - Acute and chronic respiratory failure with hypoxia; J96.22 - Acute and chronic respiratory failure with hypercapnia (2) Acute exacerbation of CHF (congestive heart failure) Current Visit: Yes Status: Acute Assessment and plan: Continues to have some respiratory distress with hypercapnia on ABG. Continue BiPAP support as needed along with supplemental oxygen. Continue beta rivka, diuretics. Echocardiogram reviewed, shows 55% ejection fraction, moderate concentric LVH, mild diastolic dysfunction of left ventricle, mild to moderate aortic regurgitation, mild mitral and tricuspid regurgitation and moderate pulmonary regurgitation, mild pulmonary hypertension. Cardiology consult appreciated. Qualifiers: Congestive heart failure type: combined Qualified Code(s): I50.43 - Acute on chronic combined systolic (congestive) and diastolic (congestive) heart failure (3) Hypothyroidism Current Visit: Yes Status: Chronic Qualifiers: Hypothyroidism type: acquired Qualified Code(s): E03.9 - Hypothyroidism, unspecified (4) CAD (coronary artery disease) Current Visit: Yes Status: Chronic Qualifiers: Coronary Disease-Associated Artery/Lesion type: [place] artery [place] vs. transplanted heart: [place] heart Associated angina: without angina Qualified Code(s): I25.10 - Atherosclerotic heart disease of [place] coronary artery without angina pectoris (5) Diabetes Current Visit: Yes Status: Chronic Assessment and plan: Continue Accu-Chek blood glucose monitoring with sliding scale insulin. Diabetic diet. Qualifiers: Diabetes mellitus type: type 2 Diabetes mellitus complication status: with hyperglycemia Diabetes mellitus prison insulin use: without terminal superintendent use Qualified Code(s): E11.65 - Type 2 diabetes mellitus with hyperglycemia (6) Hypertension Current Visit: Yes Status: Chronic Qualifiers: Hypertension type: essential hypertension Qualified Code(s): I10 - Essential (primary) hypertension (7) COPD (chronic obstructive pulmonary disease) Current Visit: Yes Status: Chronic Qualifiers: COPD type: unspecified COPD Qualified Code(s): J44.9 - Chronic obstructive pulmonary disease, unspecified - Subjective Interval history: Noted to be extremely drowsy, difficult to arouse. SHe received a dose of Ativan earlier this morning prior to which she was noted to be alert and oriented. Has been on BiPAP overnight and this morning, was able to eat breakfast on nasal cannula. - Constitutional Vitals: Temp Pulse Resp BP Pulse Ox 97.5 F L 60 18 152/71 100 06/21/16 11:10 06/21/16 11:10 06/21/16 11:14 06/21/16 11:14 06/21/16 11:14 General appearance: Present: A&O X 0 (Somnolent, difficult to arouse) - Respiratory Respiratory exam: Present: rales (Left basal crackles). Absent: accessory muscle use, rhonchi, wheezes - Cardiovascular Cardiovascular exam: Present: RRR, +S1, +S2. Absent: diastolic murmur, gallop, rubs, systolic murmur - GI/Abdominal GI/Abdominal exam: Present: normal bowel sounds, soft, no peritoneal signs. Absent: distended, tenderness - Extremities Exam Extremities exam: Present: full ROM, warm, radial pulses palpable and symetrical. Absent: calf tenderness, cyanotic, pedal edema - Neurological Exam Neurological exam: Present: altered. Absent: pronater drift, facial droop, speech deficit Internal Medicine: Result - Labs CBC & Chem 7: 06/19/16 05:00 06/21/16 04:50 Labs: BMP 06/21/16 04:50 Sodium 135 L Potassium 4.6 H Chloride 86 L Carbon Dioxide 36 H BUN 42 H D Creatinine 0.72 Glucose 279 H Calcium 10.6 - ABG Interpretation ABG results: ABG ABG pH 7.34 pH Units (7.32-7.45) 06/20/16 04:08 ABG pCO2 85 mmHg (35-45) H* 06/20/16 04:08 ABG pO2 56 mmHg (85-104) L 06/20/16 04:08 ABG O2 Saturation 87 % (95-98) L 06/20/16 04:08 PT/INR, D-dimer PT 12.7 Seconds (9.4-12.1) H 06/18/16 21:32 Consult Discharge Plan - Plan Referrals: Sonya Morel MD [Primary Care Provider] - 06/27/16 10:45 am
--- NOTE | 2016-06-21 13:42 | Cardiology Consult Note ---
<Miguel Angel Schmitz - Last Filed: 06/21/16 14:05> Date of Encounter: 06/21/16 Time of Encounter: 13:39 Assessment and Plan (1) Acute exacerbation of CHF (congestive heart failure) Current Visit: Yes Status: Acute - patient somnolent on exam, reportedly given Ativan and Carvedilol - vitals stable at 94% on 6L with pulse of 68 and BP 90s/60s - denies chest pain or shortness of breath, diffuse rales on auscultation but no peripheral edema on exam - ECHO reviewed 06/20 EF 55% with mod concentric LVH, mild diastolic dysfunction , mid-mod AR, mild MR, mild TR, mod pulm regurg, RVSP 43, mild pulm hypertension - CXR reviewed and shows findings consistent with acute exacerbation of CHF - BNP 602 and negative trop - patient is DNR-CCA/DNI and therefore limit options - recommend to optimize medical management by decreasing Carvedilol to 6.25 mg and continue diuresis with IV Lasix 40mg BID at this time Qualifiers: Congestive heart failure type: combined Qualified Code(s): I50.43 - Acute on chronic combined systolic (congestive) and diastolic (congestive) heart failure Discussion w patient/family: The assessment and plan as outlined above was discussed with the patient and/or family members who expressed understanding and agreement. All questions were answered. Thank you for involving us in the care of your patient. Please call with any questions. History of Present Illness Consult date: 06/21/16 Requesting physician: Maxine Dodge Consult reason: acute CHF Chief complaint: respiratory failure, acute congestive HF History of present illness: Ms. Anne is a 70 year old female with past medical history of CAD s/p several MIs (1991, 1995, 2002), s/o CABG x3 (1995), s/p several PCIs (1995 and 2002), severe COPD with chronic hypoxemic respiratory failure on home oxygen, DM , HLD, HTN, and CHF (prior EF 65% 05/04) presented to the ED for worsening dyspnea of several days. Reports shortness of breath at rest and orthopnea. Also reports of increase cough and sputum production. Denies any fever, chest pain, abdominal pain, lightheadedness, nausea, or vomiting. EKG was abnormal but did not show any acute ischemic changes. Troponin 0.01. BNP was 602. CXR reviewed and reveals pulmonary edema. On examination patient was in no acute distress off the BiPAP and resting comfortably with 6L O2. She was very somnolent and quickly falls asleep after sternal rub. Patient reportedly received Ativan. History was mainly obtained through medical chart review from admission and outpatient as well as from patient's RN. She currently denies any chest pain or shortness of breath. Urine output showed 450 cc of light yellow urine. Past Med Surg Social Fam HX - Past Medical History Medical history: CHF, COPD, coronary artery disease, diabetes, hyperlipidemia, hypertension, myocardial infarction Psychiatric history: anxiety, depression - Past Surgical History Surgical History: vascular surgery - Social History Smoking Status: Current every day smoker Smokeless Tobacco Status: No Alcohol use: none Drug use: none - Family History Mother Adopted: No Age: 70 Living Status: Age at : 70 Cause of : heart problems Hx Family Cardiac Disorders: Yes (mi, chf) Medications and Allergies Aspirin 325 mg PO DAILY 05/10/15 [History] Atorvastatin Calcium [Lipitor] 80 mg PO HS 05/10/15 [History] Carvedilol [Coreg] 12.5 mg PO BIDWM 05/10/15 [History] Clopidogrel [Plavix] 75 mg PO DAILY 05/10/15 [History] Docusate [Colace] 100 mg PO BID 05/10/15 [History] Escitalopram [Lexapro] 20 mg PO DAILY 05/10/15 [History] Esomeprazole Magnesium [Nexium] 40 mg PO DAILY 05/10/15 [History] Fenofibrate [Tricor] 145 mg PO DAILY 05/10/15 [History] Fluticasone/Salmeterol [Advair 250-50 Diskus] 1 puff IH BID 05/10/15 [History] Folic Acid 1 mg PO DAILY 05/10/15 [History] Furosemide [Lasix] 20 mg PO DAILY 05/10/15 [History] Gabapentin [Neurontin] 600 mg PO DAILY 05/10/15 [History] Glimepiride [Amaryl] 4 mg PO DAILY 05/10/15 [History] Hydrocodone/Acetaminophen [Stacy 7.5-325 Tablet] 1 tab PO Q6H PRN 05/10/15 [ History] Isosorbide MONOnitrate (24 HR) [Imdur] 30 mg PO DAILY 05/10/15 [History] LORazepam [Ativan] 0.5 mg PO TID 05/10/15 [History] Levothyroxine [Synthroid] 175 mcg PO DAILY 05/10/15 [History] Losartan [Cozaar] 100 mg PO DAILY 05/10/15 [History] Tiotropium [Spiriva] 18 mcg IH DAILY 05/10/15 [History] Amlodipine [Norvasc] 2.5 mg PO DAILY 06/19/16 [History] Allergies No Known Allergies Allergy (Verified 05/09/15 23:51) ROS unobtainable: due to mental status (patient solmnolent from Ativan, history provided by RN and H&P) All Systems Review: A 10-system review of systems was performed and is negative for pertinent findings except as documented above in the HPI. Physical Examination Vital Signs, Last 4 Hours Temp Pulse Resp BP Pulse Ox 06/21/16 13:00 18 93 L 06/21/16 11:14 18 152/71 100 06/21/16 11:10 97.5 F L 60 16 92/50 99 06/21/16 11:00 60 General: No Apparent Distress HEENT: Atraumatic, Normocephaly, Mucus Membranes Moist Neck: Normal carotid pulses, Other (JVD 6 cm and pulsus paroxdus) Cardiac: Reg Rate and Rhythm, Normal S1 and S2 (S3 heard), No Murmur Lungs: Other (diffuse rales) Neuro: Other (patient very somnolent, arousable to sternal rub but quickly falls asleep) Skin: No rashes noted on visualized skin Musculoskeletal: No Chest Wall Tenderness Extremities: No Clubbing, No Cyanosis, No Edema, Normal Pulses Results 06/19/16 05:00 06/21/16 04:50 Lab Results 06/21/16 04:50 Sodium 135 L Potassium 4.6 H Chloride 86 L Carbon Dioxide 36 H BUN 42 H D Creatinine 0.72 Glucose 279 H Calcium 10.6 Magnesium 1.6 - Imaging and Cardiology Chest Xray: report reviewed, image reviewed Echo: report reviewed - EKG Interpretation EKG results cardiology: personally reviewed, sinus rhythm, no diagnostic ischemia, other (interventricular conduction delay) Consult Discharge Plan - Plan Referrals: Sonya Morel MD [Primary Care Provider] - 06/27/16 10:45 am <See Mcdonald G - Last Filed: 06/21/16 14:56> Date of Encounter: 06/21/16 Assessment and Plan Discussion w patient/family: The assessment and plan as outlined above was discussed with the patient and/or family members who expressed understanding and agreement. All questions were answered. Thank you for involving us in the care of your patient. Please call with any questions. History of Present Illness History of present illness: Ms. Anne is a 70 year old female All Systems Review: A 10-system review of systems was performed and is negative for pertinent findings except as documented above in the HPI. Physical Examination Vital Signs, Last 4 Hours Temp Pulse Resp BP Pulse Ox 06/21/16 13:00 18 93 L 06/21/16 11:14 18 152/71 100 06/21/16 11:10 97.5 F L 60 16 92/50 99 06/21/16 11:00 60 Results 06/19/16 05:00 06/21/16 04:50 Lab Results 06/21/16 04:50 Sodium 135 L Potassium 4.6 H Chloride 86 L Carbon Dioxide 36 H BUN 42 H D Creatinine 0.72 Glucose 279 H Calcium 10.6 Magnesium 1.6 - Attending Attestation I examined this patient and my medical decision-making was reviewed with the [employer] OPERATOR/PA/Advanced Practice Nurse/Resident Physician. I agree with the documented findings, disposition and treatment plan as described except to the extent set forth below. History is limited. Pt drowsy VSS JVD: 8 cm Chest: clear CVS: s3 heard CXR: shows pulmonary edema BNP elevated Plan: IV diuresis decrease dose of coreg due to reduced BP and HR trend renal function will follow Thanks
[2016-06-21 15:06] LABS: ABG Base Excess 19.3 mEq/L (-2.0 to 3.0); ABG Oxygen Saturation 92 % (95-98); ABG PH 7.29 pH Units (7.32-7.45); ABG PO2 70 mmHg (85-104); ABG TCO2 53.2 mEq/L (20-26)
[2016-06-21 15:07] LABS: Blood Gas FiO2 44 %
[2016-06-21 15:08] LABS: ABG PCO2 104 mmHg (35-45)
--- NOTE | 2016-06-21 17:29 | Venous Imaging Report ---
LE Venous Duplex Patient Name:Madeleine Anne Order Number:[id number] Procedure Date:06/20/2016 Date:4Age:70 yrs Gender:Female Location:[facility] Room #: 2N09 Director Of Quantitative Research:Crystal Hou RVT, RDCS Referring MD:Ozzy Mejia MD house admin:Sonya Morel MD Reading MD:Kenn Owusu MD Primary Indications:TO exclude DVT Secondary Indications: Risk Factors Yes/No Hx of DVT No Impressions: Left lower extremity: normal superficial and deep exam. Recommendations: Test completed on 06/20/2016 at 8:37:41 am. Critical findings reported to Roshni WILD to relay message in person at 8:37:52 am on 06/20/2016 by Crystal Hou RVT, RDCS. Findings Venous Duplex Results: Right: Venous imaging of the lower extremity reveals full patency and normal vessel compressibility of the right common femoral. Doppler signals in the evaluated veins were normal. Left: Venous imaging of the lower extremity reveals full patency and normal vessel compressibility of the left distal iliac, left common femoral, left superficial femoral, left popliteal, left posterior tibial, left peroneal, left saphenofemoral junction, left great saphenous and left lesser saphenous. Doppler signals in the evaluated veins were normal. Lower Extremity Venous Duplex Side Vein Compress Spontaneous Flow Augment Diameter (cm) Depth (cm) Left Distal Iliac Normal Yes Phasic Yes Left Common Femoral Normal Yes Phasic Yes Left Superficial Femoral Normal Yes Phasic Yes Left Popliteal Normal Yes Phasic Yes Left Posterior Tibial Normal Yes Phasic Yes Left Peroneal Normal Yes Phasic Yes Left Saphenofemoral Junction Normal Yes Phasic Yes Left Great Saphenous Normal Yes Phasic Yes Left Lesser Saphenous Normal Yes Phasic Yes Right Common Femoral Normal Yes Phasic Yes Updated by Kenn Owusu MD on 06/21/2016 5:23:00 PM electronically signed on 06/21/2016 5:23:10 PM with status of Final
[2016-06-22] MEDS: Ipratropium/Albuterol Neb 3 ML IH SCH ×6 (04:21→23:40)
[2016-06-22] MEDS: MethylPREDNISolone 40 MG/ML VIAL IVP SCH (06:08)
[2016-06-22] MEDS: Budesonide/Formoterol 80/4.5 MDI IH SCH ×2 (08:13→20:13)
[2016-06-22] MEDS: Insulin LISPRO 300 UNITS/3 ML VIAL SQ SCH ×4 (08:36→20:40)
[2016-06-22] MEDS: Aspirin 325 MG TABLET PO SCH (08:38)
[2016-06-22] MEDS: Folic Acid 1 MG TABLET PO SCH (08:39)
[2016-06-22] MEDS: Furosemide 40 MG/4 ML VIAL IVP SCH (08:39)
[2016-06-22] MEDS: *HR* LORazepam 0.5 MG TABLET PO SCH (08:39)
[2016-06-22] MEDS: Levofloxacin 500 MG/100 ML 500 MG/100 ML BAG IVPB SCH (08:39)
[2016-06-22] MEDS: *HR* Heparin 5,000 UNIT/ML VIAL SQ SCH ×3 (08:40→23:56)
[2016-06-22] MEDS: Gabapentin 300 MG CAPSULE PO SCH (08:40)
[2016-06-22] MEDS: Fenofibrate 54 MG TABLET PO SCH (08:41)
--- NOTE | 2016-06-22 09:10 | Cardiology Progress Note ---
<Miguel Angel Schmitz - Last Filed: 06/22/16 11:16> Date of Encounter: 06/22/16 Time of Encounter: 09:04 Assessment and Plan (1) Acute exacerbation of CHF (congestive heart failure) Current Visit: Yes Status: Acute - improving, appears euvolemic - hemodynamically stable, HR and BP good - patient has responded well with IV lasix still putting out good urine output, total of 3L in 24 hours - recommend switching to PO Lasix 20 mg BID - continue to trend renal function, currently Cr is 0.72 - ECHO reviewed shows EF 55%, moderate concentric LVH, mild diastolic dysfunction of left ventricle, mild to moderate aortic regurgitation, mild mitral and tricuspid regurgitation and moderate pulmonary regurgitation, mild pulmonary hypertension Cardiology will sign off at this time, thank you for involving us in her care. Qualifiers: Congestive heart failure type: unspecified congestive heart failure type Qualified Code(s): I50.9 - Heart failure, unspecified Discussion w patient/family: The assessment and plan as outlined above was discussed with the patient and/or family members who expressed understanding and agreement. All questions were answered. Thank you for involving us in the care of your patient. Please call with any questions. Subjective Principal diagnosis: Dyspnea, CHF Interval history: Patient and examined. She is more alert and awake today. She is currently working on her breakfast but reports some difficulty in swallowing. Breathing has improving but continues to be dyspneic. Denies any chest pain, lightheadedness, headache, nausea. Reports some low back pain like "a needle up my butt." She was turned and appears to have some erythema but not signs of abscess or ulceration. Objective Vital Signs, Last 4 Hours Temp Pulse Resp BP Pulse Ox 06/22/16 08:30 83 94 L 06/22/16 08:14 33 96 06/22/16 07:25 98.0 F 75 30 137/61 96 General: Conversant, No Apparent Distress HEENT: Atraumatic, Normocephaly, Mucus Membranes Moist Neck: Normal carotid pulses, Other (JVD 6 cm) Cardiac: Reg Rate and Rhythm, Normal S1 and S2 (S3 heard), No Murmur Lungs: Normal Breath Sounds, Other (bilateral rales) Neuro: Alert and responsive, No focal deficits noted Abdomen: Soft, Non-Tender Skin: No rashes noted on visualized skin, Other (erythema to the sacrum) Musculoskeletal: No Chest Wall Tenderness Extremities: No Clubbing, No Cyanosis, No Edema, Normal Pulses Results 06/19/16 05:00 06/21/16 04:50 - Imaging and Cardiology Echo: report reviewed Consult Discharge Plan - Plan Referrals: Sonya Morel MD [Primary Care Provider] - 06/27/16 10:45 am <See Mcdonald - Last Filed: 06/22/16 11:43> Date of Encounter: 06/22/16 Assessment and Plan Discussion w patient/family: The assessment and plan as outlined above was discussed with the patient and/or family members who expressed understanding and agreement. All questions were answered. Thank you for involving us in the care of your patient. Please call with any questions. Objective Vital Signs, Last 4 Hours Temp Pulse Resp BP Pulse Ox 06/22/16 11:23 28 98 06/22/16 11:22 97.8 F 69 28 103/52 100 06/22/16 08:30 83 94 L 06/22/16 08:14 33 96 Results 06/19/16 05:00 06/21/16 04:50 - Attending Attestation I examined this patient and my medical decision-making was reviewed with the 3RD GRADE READING TEACHER/PA/Advanced Practice Nurse/Resident Physician. I agree with the documented findings, disposition and treatment plan as described except to the extent set forth below. See details of resident note Pt is less sob slept fairly well apetite slowly improving VSS JVD: 6-7 cm Chest : occ crackles and wheezes CVS : no murmur, no s3 plan; CHF: improved; change to po bid lasix SOB appears to be mostly COPD
--- NOTE | 2016-06-22 10:54 | Internal Med Progress Note ---
Date of Encounter: 06/22/16 Time of Encounter: 10:51 - Assessment and plan (1) Acute and chronic respiratory failure Current Visit: Yes Status: Acute Assessment and plan: Likely result of an acute exacerbation of CHF along with underlying COPD. noted to have significant improvement in clinical status. Improving oxygen requirements, however still requires 6 L/m via nasal cannula along with nocturnal BiPAP. ABG shows respiratory acidosis with significant carbon dioxide retention. We will order a nocturnal pulse oximetry study for possible BiPAP qualification prior to discharge. Continue fluid restriction, IV diuresis, strict input/urine output monitoring and daily weights. Continue supplemental oxygen as needed along with when necessary BiPAP support. Continue bronchodilators, taper down IV steroids as tolerated, empiric IV antibiotics. Patient has a guarded prognosis at this time. Physical and occupational therapy evaluation noted, recommend placement in an extended care facility for continued rehabilitation. emergency services professional working on the same. Qualifiers: Respiratory failure complication: hypoxia and hypercapnia Qualified Code(s) : J96.21 - Acute and chronic respiratory failure with hypoxia; J96.22 - Acute and chronic respiratory failure with hypercapnia (2) Acute exacerbation of CHF (congestive heart failure) Current Visit: Yes Status: Acute Assessment and plan: Improving. Noted to have significant urine output since increasing Lasix dose yesterday. Noted to have lost at least 7 pounds since admission. Continue BiPAP support as needed along with supplemental oxygen. Continue beta rivka, diuretics. Echocardiogram reviewed, shows 55% ejection fraction, moderate concentric LVH, mild diastolic dysfunction of left ventricle, mild to moderate aortic regurgitation, mild mitral and tricuspid regurgitation and moderate pulmonary regurgitation, mild pulmonary hypertension. Cardiology consult appreciated, agree with current management. Qualifiers: Congestive heart failure type: unspecified congestive heart failure type Qualified Code(s): I50.9 - Heart failure, unspecified (3) Hypothyroidism Current Visit: Yes Status: Chronic Qualifiers: Hypothyroidism type: acquired Qualified Code(s): E03.9 - Hypothyroidism, unspecified (4) CAD (coronary artery disease) Current Visit: Yes Status: Chronic Qualifiers: Coronary Disease-Associated Artery/Lesion type: [place] artery [place] vs. transplanted heart: [place] heart Associated angina: without angina Qualified Code(s): I25.10 - Atherosclerotic heart disease of [place] coronary artery without angina pectoris (5) Diabetes Current Visit: Yes Status: Chronic Assessment and plan: Continue Accu-Chek blood glucose monitoring with sliding scale insulin. Diabetic diet. Qualifiers: Diabetes mellitus type: type 2 Diabetes mellitus complication status: with hyperglycemia Diabetes mellitus terminal operations supervisor insulin use: without terminal operations supervisor use Qualified Code(s): E11.65 - Type 2 diabetes mellitus with hyperglycemia (6) Hypertension Current Visit: Yes Status: Chronic Qualifiers: Hypertension type: essential hypertension Qualified Code(s): I10 - Essential (primary) hypertension (7) COPD (chronic obstructive pulmonary disease) Current Visit: Yes Status: Chronic Assessment and plan: Continue bronchodilators and supplemental oxygen along with tapering IV steroids and empiric IV antibiotics. Shows clinical improvement. Overnight BiPAP qualification study tonight. Qualifiers: COPD type: unspecified COPD Qualified Code(s): J44.9 - Chronic obstructive pulmonary disease, unspecified (8) Tobacco abuse Current Visit: Yes Status: Chronic Assessment and plan: Patient admits to smoking one to 2 packs per day of cigarettes. Refuses nicotine transdermal patch at this time. Smoking cessation counseling provided , patient understands the risks of smoking in light of her underlying cardiac and pulmonary disease, however is reluctant to quit smoking at this time. - Subjective Interval history: Appears and feels much better today; awake and alert, able to answer questions, although has flat affect and appears depressed; no present dyspnea, leg swelling , chest pain; improving cough; patient is also noted to be an active heavy smoker, not ready to quit at this time, refuses Nicotine patch; - Constitutional Vitals: Temp Pulse Resp BP Pulse Ox 98.0 F 83 33 137/61 94 L 06/22/16 07:25 06/22/16 08:30 06/22/16 08:14 06/22/16 07:25 06/22/16 08:30 General appearance: Present: A&O X 3, underweight, answers questions appropriately - Head Head exam: Present: atraumatic, normocephalic - Neck Neck exam general surgery: Present: supple, trachea midline. Absent: lymphadenopathy - Respiratory Respiratory exam: Present: CTAB (Coarse breath sounds bilaterally). Absent: accessory muscle use, rales, rhonchi, wheezes - Cardiovascular Cardiovascular exam: Present: RRR, +S1, +S2, systolic murmur. Absent: diastolic murmur, gallop, rubs - GI/Abdominal GI/Abdominal exam: Present: normal bowel sounds, soft, no peritoneal signs. Absent: distended, tenderness - Extremities Exam Extremities exam: Present: full ROM, warm, radial pulses palpable and symetrical. Absent: calf tenderness, cyanotic, pedal edema - Neurological Exam Neurological exam: Present: CN II-XII intact, oriented X3, no focal deficits. Absent: pronater drift, facial droop, speech deficit - Skin Skin exam: Present: dry, intact Internal Medicine: Result - Labs CBC & Chem 7: 06/19/16 05:00 06/21/16 04:50 - ABG Interpretation ABG results: ABG ABG pH 7.29 pH Units (7.32-7.45) L 06/21/16 14:45 ABG pCO2 104 mmHg (35-45) H* 06/21/16 14:45 ABG pO2 70 mmHg (85-104) L 06/21/16 14:45 ABG O2 Saturation 92 % (95-98) L 06/21/16 14:45 PT/INR, D-dimer PT 12.7 Seconds (9.4-12.1) H 06/18/16 21:32 - Impressions Impressions Chest X-Ray 06/21/16 12:34 IMPRESSION: 1. Increasing pulmonary vasculature and pleural effusions concerning for CHF. 2. Left basilar opacity could be due to pleural effusion and atelectasis. Superimposed infiltrate is not excluded. D/ / Kobe Moore MD / Kobe Moore MD Interpreting Provider: Kobe Moore MD Consult Discharge Plan - Plan Referrals: Sonya Morel MD [Primary Care Provider] - 06/27/16 10:45 am
[2016-06-22] MEDS: Tiotropium 18 MCG inhalation IH SCH (11:14)
[2016-06-22] MEDS: Sennosides/Docusate Sodium TABLET PO SCH ×2 (12:22→20:35)
[2016-06-22] MEDS ORDERED: *HR* LORazepam 0.5 MG TABLET PO PRN (14:52)
[2016-06-22] MEDS: Furosemide 20 MG TABLET PO SCH (17:47)
[2016-06-23] MEDS: Ipratropium/Albuterol Neb 3 ML IH SCH ×4 (03:57→16:18)
[2016-06-23] MEDS: *HR* Heparin 5,000 UNIT/ML VIAL SQ SCH ×2 (06:16→16:18)
[2016-06-23] MEDS: Furosemide 20 MG TABLET PO SCH (06:16)
[2016-06-23] MEDS: Tiotropium 18 MCG inhalation IH SCH (07:51)
[2016-06-23] MEDS: Budesonide/Formoterol 80/4.5 MDI IH SCH (07:53)
[2016-06-23] MEDS ORDERED: MethylPREDNISolone 40 MG/ML VIAL IVP SCH (09:00)
[2016-06-23] MEDS ORDERED: levoFLOXacin 500 MG TABLET PO SCH (09:00)
[2016-06-23] MEDS: Insulin LISPRO 300 UNITS/3 ML VIAL SQ SCH ×2 (09:18→12:20)
[2016-06-23] MEDS: Gabapentin 300 MG CAPSULE PO SCH (09:18)
[2016-06-23] MEDS: Folic Acid 1 MG TABLET PO SCH (09:18)
[2016-06-23] MEDS: Aspirin 325 MG TABLET PO SCH (09:19)
[2016-06-23] MEDS: Fenofibrate 54 MG TABLET PO SCH (09:19)
[2016-06-23] MEDS: Sennosides/Docusate Sodium TABLET PO SCH (09:19)
[2016-06-23 12:01] LABS: ABG HCO3 55.1 mEQ/L (21-27); ABG Oxygen Saturation 87 % (95-98); ABG PH 7.43 pH Units (7.32-7.45); ABG PO2 51 mmHg (85-104); ABG TCO2 57.6 mEq/L (20-26)
[2016-06-23 12:03] LABS: Blood Gas FiO2 36 %; Blood Gas Liter Flow 4 L/MIN
[2016-06-23 12:04] LABS: ABG PCO2 83 mmHg (35-45)
--- NOTE | 2016-06-23 14:45 | Discharge Summary ---
Date of Encounter: 06/23/16 Time of Encounter: 11:00 - Discharge Diagnosis (1) Acute and chronic respiratory failure Priority: Primary Status: Acute Qualifiers: Respiratory failure complication: hypoxia and hypercapnia Qualified Code(s) : J96.21 - Acute and chronic respiratory failure with hypoxia; J96.22 - Acute and chronic respiratory failure with hypercapnia (2) Acute exacerbation of CHF (congestive heart failure) Priority: Primary Status: Acute Qualifiers: Congestive heart failure type: combined Qualified Code(s): I50.43 - Acute on chronic combined systolic (congestive) and diastolic (congestive) heart failure (3) Hypothyroidism Priority: Secondary Status: Chronic Qualifiers: Hypothyroidism type: acquired Qualified Code(s): E03.9 - Hypothyroidism, unspecified (4) CAD (coronary artery disease) Priority: Secondary Status: Chronic Qualifiers: Coronary Disease-Associated Artery/Lesion type: bypass graft [place] vs. transplanted heart: [place] heart Associated angina: without angina Qualified Code(s): I25.810 - Atherosclerosis of coronary artery bypass graft(s) without angina pectoris (5) Diabetes Priority: Secondary Status: Chronic Qualifiers: Diabetes mellitus type: type 2 Diabetes mellitus complication status: with hyperglycemia Diabetes mellitus intermediate manager insulin use: without assisted use Qualified Code(s): E11.65 - Type 2 diabetes mellitus with hyperglycemia (6) Hypertension Priority: Secondary Status: Chronic Qualifiers: Hypertension type: essential hypertension Qualified Code(s): I10 - Essential (primary) hypertension (7) COPD (chronic obstructive pulmonary disease) Priority: Secondary Status: Chronic Qualifiers: COPD type: unspecified COPD Qualified Code(s): J44.9 - Chronic obstructive pulmonary disease, unspecified (8) Tobacco abuse Priority: Secondary Status: Chronic - Discharge Medications Prescriptions: LORazepam [Ativan] 0.25 mg PO TID PRN #20 tablet PRN Reason: Anxiety Levofloxacin [Levaquin] 500 mg PO DAILY #2 tablet PredniSONE 40 mg PO DAILY 8 Days Home Medications: Aspirin 325 mg PO DAILY 05/10/15 [History] Atorvastatin Calcium [Lipitor] 80 mg PO HS 05/10/15 [History] Carvedilol [Coreg] 12.5 mg PO BIDWM 05/10/15 [History] Clopidogrel [Plavix] 75 mg PO DAILY 05/10/15 [History] Docusate [Colace] 100 mg PO BID 05/10/15 [History] Escitalopram [Lexapro] 20 mg PO DAILY 05/10/15 [History] Esomeprazole Magnesium [Nexium] 40 mg PO DAILY 05/10/15 [History] Fenofibrate [Tricor] 145 mg PO DAILY 05/10/15 [History] Fluticasone/Salmeterol [Advair 250-50 Diskus] 1 puff IH BID 05/10/15 [History] Folic Acid 1 mg PO DAILY 05/10/15 [History] Furosemide [Lasix] 20 mg PO DAILY 05/10/15 [History] Glimepiride [Amaryl] 4 mg PO DAILY 05/10/15 [History] Hydrocodone/Acetaminophen [[place] 7.5-325 Tablet] 1 tab PO Q6H PRN 05/10/15 [ History] Isosorbide MONOnitrate (24 HR) [Imdur] 30 mg PO DAILY 05/10/15 [History] Levothyroxine [Synthroid] 175 mcg PO DAILY 05/10/15 [History] Losartan [Cozaar] 100 mg PO DAILY 05/10/15 [History] Tiotropium [Spiriva] 18 mcg IH DAILY 05/10/15 [History] Amlodipine [Norvasc] 2.5 mg PO DAILY 06/19/16 [History] Gabapentin [Neurontin] 600 mg PO DAILY #30 06/23/16 [Rx] LORazepam [Ativan] 0.25 mg PO TID PRN #20 tablet 06/23/16 [Rx] Levofloxacin [Levaquin] 500 mg PO DAILY #2 tablet 06/23/16 [Rx] PredniSONE 40 mg PO DAILY 8 Days 06/23/16 [Rx] Allergies/Adverse Reactions: Allergies No Known Allergies Allergy (Verified 05/09/15 23:51) Procedures/tests Complete & Pending: Procedures Performed prior 72 hours Category Date Time Status ECG 12 lead ECG [ECG] Stat Y 06/22/16 09:02 Completed Date of admission: 06/18/16 23:55 Primary care physician: Sonya Morel Consults: 06/20/16 09:25 Consult to Occupational Therapy [CONS] Routine Comment: Evaluate, develop and implement POC Consult to Physical Therapy [CONS] Routine Comment: Evaluate, develop and implement POC 06/21/16 10:15 Consult to Outside Energy Sales Representatives [CONS] Routine Reason for SW Consult: Consulted for ECF placement. 06/21/16 12:39 Consult to Cardiology [CONS] Routine Comment: Consulting Provider: See Mcdonald Reason for Consult: Acute CHF Call Completed: Yes Discharging clinician: Maxine Dodge Anticipated date of discharge: 06/23/16 - Patient Status Disposition: Transfer SNF Condition: Fair Functional capacity at discharge: uses cane/walker Overall status at discharge: patient is progressing back to baseline - Discharge Instructions Instructions: Lorazepam (By mouth), Prednisone (By mouth), Levofloxacin (By mouth), Heart Failure (DC), Diabetes Mellitus Type 2 in Adults (DC), Chronic Obstructive Pulmonary Disease (DC) Follow Up With: Sonya Morel MD [Primary Care Provider] - (Patient is going to rehab, No PCP appointment needed) - Diet and Activity Activity: as per physical therapy, wear oxygen at all times Diet: diabetic diet, low fat, low cholesterol, low salt diet Hospital course: Ms. Anne is a 70 year old female with the above medical conditions, admitted with worsening cough and respiratory failure. She was noted to have an acute exacerbation of CHF. Chest x-ray showed cardiomegaly and pulmonary edema, underlying infiltrate cannot be ruled out. She was started on IV Lasix along with fluid restriction and urine output monitoring. She did not show significant improvement initially and her Lasix dose was increased to 40 mg twice daily and started on strict fluid restriction. She was also started on empiric IV antibiotics. Echocardiogram was done which showed ejection fraction of 55%, moderate concentrate LVH, [id number] aortic regurgitation, mild mitral and tricuspid regurgitation, moderate pulmonary regurgitation and mild pulmonary hypertension. Cardiology was consulted and agreed with the current management. Patient initially required high flow supplemental oxygen along with intermittent BiPAP support. Initial ABGs showed significant For now except retention and respiratory acidosis due to elevated PCO2, which gradually improved and her oxygen requirements came down to 3-4 L/m nasal cannula. Blood cultures remain negative. She had episodes of extreme drowsiness and lethargy, after receiving her Ativan doses and so her Ativan is being decreased and will be given to her as needed instead of scheduled dose. Physical therapy evaluation was done and recommend placement in extended care facility for continued rehabilitation. Patient has been counseled multiple times regarding smoking cessation but is not interested or motivated at this time. She had significant amount of urine output and had at least 6-7 pound weight loss with improved oxygen requirements and breathing and is currently medically stable for transfer to fdc. Time spent discussing smoking cessation with patient: 3 to 10 minutes - Time Spent with Patient Total time spent providing and/or coordinating discharge services: Greater than 30 minutes (50 min) - Constitutional Vitals: Temp Pulse Resp BP Pulse Ox 98.5 F 62 24 101/71 93 L 06/23/16 11:55 06/23/16 13:44 06/23/16 11:55 06/23/16 12:15 06/23/16 13:44 General appearance: Present: A&O X 3, underweight, answers questions appropriately - Respiratory Respiratory exam: Present: rales (bibasal crepts+). Absent: accessory muscle use, rhonchi, wheezes - Cardiovascular Cardiovascular exam: Present: RRR, +S1, +S2. Absent: diastolic murmur, gallop, rubs, systolic murmur
--- NOTE | 2016-06-23 14:59 | Physician Discharge Referral ---
ExtendedCare Referral Info Transfer To: [facility] Provider in Charge: Maxine Dodge Provider in Charge after Transfer: PCP Institutional Level of Care: Skilled - Diagnosis (1) Acute and chronic respiratory failure Priority: Primary Status: Acute (2) Acute exacerbation of CHF (congestive heart failure) Priority: Primary Status: Acute (3) Hypothyroidism Priority: Secondary Status: Chronic (4) CAD (coronary artery disease) Priority: Secondary Status: Chronic (5) Diabetes Priority: Secondary Status: Chronic (6) Hypertension Priority: Secondary Status: Chronic (7) COPD (chronic obstructive pulmonary disease) Priority: Secondary Status: Chronic (8) Tobacco abuse Priority: Secondary Status: Chronic Expected Duration of Placement: 3 weeks Prognosis: Fair Aware of Diagnosis: Patient, Family Aware of Prognosis: Patient, Family - Transfer Medications Prescriptions: LORazepam [Ativan] 0.25 mg PO TID PRN #20 tablet PRN Reason: Anxiety Levofloxacin [Levaquin] 500 mg PO DAILY #2 tablet PredniSONE 40 mg PO DAILY 8 Days Home Medications: Aspirin 325 mg PO DAILY 05/10/15 [History] Atorvastatin Calcium [Lipitor] 80 mg PO HS 05/10/15 [History] Carvedilol [Coreg] 12.5 mg PO BIDWM 05/10/15 [History] Clopidogrel [Plavix] 75 mg PO DAILY 05/10/15 [History] Docusate [Colace] 100 mg PO BID 05/10/15 [History] Escitalopram [Lexapro] 20 mg PO DAILY 05/10/15 [History] Esomeprazole Magnesium [Nexium] 40 mg PO DAILY 05/10/15 [History] Fenofibrate [Tricor] 145 mg PO DAILY 05/10/15 [History] Fluticasone/Salmeterol [Advair 250-50 Diskus] 1 puff IH BID 05/10/15 [History] Folic Acid 1 mg PO DAILY 05/10/15 [History] Furosemide [Lasix] 20 mg PO DAILY 05/10/15 [History] Glimepiride [Amaryl] 4 mg PO DAILY 05/10/15 [History] Hydrocodone/Acetaminophen [[place] 7.5-325 Tablet] 1 tab PO Q6H PRN 05/10/15 [ History] Isosorbide MONOnitrate (24 HR) [Imdur] 30 mg PO DAILY 05/10/15 [History] Levothyroxine [Synthroid] 175 mcg PO DAILY 05/10/15 [History] Losartan [Cozaar] 100 mg PO DAILY 05/10/15 [History] Tiotropium [Spiriva] 18 mcg IH DAILY 05/10/15 [History] Amlodipine [Norvasc] 2.5 mg PO DAILY 06/19/16 [History] Gabapentin [Neurontin] 600 mg PO DAILY #30 06/23/16 [Rx] LORazepam [Ativan] 0.25 mg PO TID PRN #20 tablet 06/23/16 [Rx] Levofloxacin [Levaquin] 500 mg PO DAILY #2 tablet 06/23/16 [Rx] PredniSONE 40 mg PO DAILY 8 Days 06/23/16 [Rx] Allergies/Adverse Reactions: Allergies No Known Allergies Allergy (Verified 05/09/15 23:51) - Respiratory Orders Oxygen / L per min (4-5L/min) Smoking Cessation: Smoking cessation has been advised. For more information, call the [employer] Tobacco Quit Line at 8-804-JUSY-NOW. - Advance Directives Living Will: Yes Code Status: DNR-Arrest/Don't Intubate - Mobility Orders Ambulate - Rehabiliation Orders Rehab Potential: Fair Rehab Orders: ROM Exercises, Evaluation for Physical Therapy, Evaluation for Occupational Therapy - Diet Orders No Added Salt (KHOI), No Concentrated Sweets (diabetic), Cardiac CERTIFICATION: I certify that the transfer of the above named patient to an Extended Care Facility is necessary for the continuing treatment of the diagnosis listed. The above information is true and accurate reflection of patient's current condition. Confidential - Redisclosure prohibited without a patient's written consent.
--- NOTE | 2016-06-23 15:35 | Electrocardiograph Report ---
[place] [id number] Test Date: 2016-06-22 Pat Name: Madeleine Anne Department: 110 Room: 2N09 Gender: F Metalizing Supervisor: : [id number] Requested By: Miguel Angel Schmitz Order Number: [id number] Reading MD: Hattie Avalos Measurements Intervals [place] Rate: 84 P: 82 NM: 153 QRS: -57 QRSD: 121 T: 74 QT: 380 QTc: 421 Interpretive Statements SINUS RHYTHM POSSIBLE LEFT ATRIAL ENLARGEMENT MARKED LEFT AXIS DEVIATION ANTEROSEPTAL MYOCARDIAL INFARCTION, OF INDETERMINATE AGE Electronically Signed On 06-23-2016 15:33:13 EST by Hattie Avalos
[2016-06-23 16:15] VITALS: BP 94/43
== END 2016-06-23 17:25 | DRG 291 ==
LOC: EMEROO 20:54 → 2NNU 20:54 → SUATTDRO 23:55
PROVIDERS: ADMIT Family Medicine; ATTEND Internal Medicine